=== PATIENT | male | born 1935 | race Caucasian/White ===

== ENCOUNTER → 2016-10-28 | Outpatient (CLI) | payer MEDICARE, BC ==
--- NOTE | 2016-10-28 15:06 | US ---
EXAMINATION TYPE: US venous doppler duplex LE BI DATE OF EXAM: 10/28/2016 1:47 PM COMPARISON: In pacs CLINICAL HISTORY: R22.42 Swelling lt lower limb. Left foot and lower leg swelling SIDE PERFORMED: Left VESSELS IMAGED: External Iliac Vein (EIV) Common Femoral Vein Deep Femoral Vein Greater Saphenous Vein * Femoral Vein Popliteal Vein Small Saphenous Vein * Proximal Calf Veins (* superficial vessels) TECHNOLOGIST IMPRESSION: Patient refused right leg venous doppler ultrasound due to no symptoms in r ight leg Left Leg: Appears negative for DVT IMPRESSION: 1. Left lower extremity without evidence of deep venous thrombosis by ultrasound.
== END | disposition home or self-care (01) ==
LOC: RADUSWWP 13:07
PROVIDERS: ATTEND Internal Medicine
DX: R22.42 Localized swelling, mass and lump, left lower limb (principal)